=== PATIENT | male | born 1995 | race Caucasian/White ===

== ENCOUNTER → 2023-09-05 | Outpatient (CLI) | payer OTHER ==
[2023-09-05 09:54] LABS: BASO % 0.5 % (0.0-1.0); EOS % 0.7 % (1.0-4.0); HEMATOCRIT 49.1 % (42.0-52.0); LYMPH # 2.2 10*3/uL (1.3-4.4); LYMPH % 39.2 % (27.0-41.0); MEAN CELL VOLUME 84.9 fl (80.0-94.0); MEAN CORPUSCULAR HGB 28.2 pg (27.0-31.0); MEAN CORPUSCULAR HGB CONC 33.2 g/dl (33.0-37.0); MEAN PLATELET VOLUME 9.1 fl (9.6-12.3); MONO # 0.4 10*3/uL (0.1-1.0); MONO % 6.1 % (3.0-9.0); PLATELET COUNT AUTOMATED 258 10*3/uL (130-400); RED BLOOD COUNT 5.78 10*6/uL (4.50-5.90); RED CELL DISTRI WIDTH 12.7 % (0-14.5); WHITE BLOOD COUNT 5.7 10*3/uL (4.8-10.8)
[2023-09-05 10:14] LABS: ALKALINE PHOSPHATASE 102 U/L (46-116); BUN 12 mg/dl (9-23); CHLORIDE 105 mmol/L (98-107); FREE T4 1.22 ng/dl (0.89-1.76); LIPASE 65 U/L (12-53); POTASSIUM 4.1 mmol/L (3.4-5.1); SGPT/ALT 103 U/L (5-49); TOTAL PROTEIN 7.6 gm/dL (6.0-8.0)
[2023-09-06 14:07] LABS: t-TRANSGLUTAMINASE (tTG) IGA <2 U/mL (0-3); t-TRANSGLUTAMINASE (tTG) IgG 6 U/mL (0-5)
== END | disposition home or self-care (01) ==
LOC: LAB 09:08
PROVIDERS: ATTEND Physician Assistant
DX: K90.9 Intestinal malabsorption, unspecified (principal); R10.9 Unspecified abdominal pain; R53.83 Other fatigue; R19.7 Diarrhea, unspecified

== ENCOUNTER → 2023-10-17 | Outpatient (CLI) | payer OTHER ==
[2023-10-18 17:06] LABS: t-TRANSGLUTAMINASE (tTG) IGA <2 U/mL (0-3); t-TRANSGLUTAMINASE (tTG) IgG 5 U/mL (0-5)
== END ==
LOC: LAB 01:27 → US 07:30 → LAB 07:30
PROVIDERS: ATTEND Physician Assistant
DX: R79.89 Other specified abnormal findings of blood chemistry (principal); K90.0 Celiac disease

== ENCOUNTER → 2024-07-27 | Outpatient (CLI) | payer OTHER ==
[2024-07-27 08:57] LABS: BASO % 0.3 % (0.0-1.0); EOS # 0.1 10*3/uL (0.0-0.4); EOS % 1.6 % (1.0-4.0); HEMATOCRIT 48.7 % (42.0-52.0); MEAN CELL VOLUME 84.5 fl (80.0-94.0); MEAN CORPUSCULAR HGB 28.6 pg (27.0-31.0); MEAN CORPUSCULAR HGB CONC 33.9 g/dl (33.0-37.0); MEAN PLATELET VOLUME 8.7 fl (9.6-12.3); MONO # 0.5 10*3/uL (0.1-1.0); MONO % 7.3 % (3.0-9.0); NEUT # 3.6 10*3/uL (2.3-7.9); NEUT % 57.3 % (47.0-73.0); PLATELET COUNT AUTOMATED 242 10*3/uL (130-400); RED BLOOD COUNT 5.76 10*6/uL (4.50-5.90); RED CELL DISTRI WIDTH 12.8 % (0-14.5); WHITE BLOOD COUNT 6.3 10*3/uL (4.8-10.8)
[2024-07-27 09:43] LABS: ALKALINE PHOSPHATASE 90 U/L (46-116); BUN 14 mg/dl (9-23); CHLORIDE 104 mmol/L (98-107); CHOLESTEROL 226 mg/dL (<200); LDL CHOLESTEROL 144 mg/dL (9-159); POTASSIUM 4.3 mmol/L (3.4-5.1); SGPT/ALT 118 U/L (5-49); TOTAL PROTEIN 7.5 gm/dL (6.0-8.0); TRIGLYCERIDES 194 mg/dl (<150)
== END | disposition home or self-care (01) ==
LOC: LAB 08:38
DX: F41.9 Anxiety disorder, unspecified (principal); K58.9 Irritable bowel syndrome, unspecified; E78.5 Hyperlipidemia, unspecified

== ENCOUNTER → 2024-09-29 | Outpatient (CLI) | payer OTHER ==
[2024-09-29 10:46] LABS: BASO % 0.2 % (0.0-1.0); EOS # 0.1 10*3/uL (0.0-0.4); EOS % 1.2 % (1.0-4.0); HEMATOCRIT 46.9 % (42.0-52.0); MEAN CELL VOLUME 84.2 fl (80.0-94.0); MEAN CORPUSCULAR HGB 28.5 pg (27.0-31.0); MEAN CORPUSCULAR HGB CONC 33.9 g/dl (33.0-37.0); MEAN PLATELET VOLUME 8.6 fl (9.6-12.3); MONO # 0.5 10*3/uL (0.1-1.0); MONO % 10.1 % (3.0-9.0); NEUT # 3.1 10*3/uL (2.3-7.9); NEUT % 60.8 % (47.0-73.0); PLATELET COUNT AUTOMATED 231 10*3/uL (130-400); RED BLOOD COUNT 5.57 10*6/uL (4.50-5.90); RED CELL DISTRI WIDTH 12.7 % (0-14.5); WHITE BLOOD COUNT 5.2 10*3/uL (4.8-10.8)
[2024-09-29 11:07] LABS: ALKALINE PHOSPHATASE 103 U/L (46-116); BUN 14 mg/dl (9-23); CHLORIDE 104 mmol/L (98-107); POTASSIUM 4.1 mmol/L (3.4-5.1); SGPT/ALT 139 U/L (5-49); TOTAL PROTEIN 7.8 gm/dL (6.0-8.0)
== END | disposition home or self-care (01) ==
LOC: RESCLI 03:44 → LAB 03:44 → RESCLI 04:04
PROVIDERS: Student in an Organized Health Care Education/Training Program; ATTEND Internal Medicine
DX: F32.A Depression, unspecified (principal); W27.3XXA Contact with needle (sewing), initial encounter; Z79.899 Other long term (current) drug therapy; Z88.8 Allergy status to other drugs, medicaments and biological substances; Z98.890 Other specified postprocedural states